=== PATIENT | female | born 1980 | race Caucasian/White ===

== ENCOUNTER → 2017-05-27 | Outpatient (CLI) | payer BC ==
--- NOTE | 2017-05-27 16:16 | US ---
EXAMINATION TYPE: US pelvic complete DATE OF EXAM: 05/27/2017 COMPARISON: NONE CLINICAL HISTORY: R10.2 Pelvic Pain. Pelvic pain x 1 week, 6, para 2, miscarriage 4, history of TECHNIQUE: Transabdominal (TA) Date of LMP: 05/06/2017 EXAM MEASUREMENTS: Uterus: 9.1 x 3.7 x 4.9 cm Endometrial Stripe: 0.8 cm Right Ovary: 3.1 x 2.2 x 2.2 cm Left Ovary: 1.8 x 1.4 x 2.0 cm 1. Uterus: anteverted, wnl 2. Endometrium: wnl 3. Right Ovary: wnl 4. Left Ovary: wnl 5. Bilateral Adnexa: wnl 6. Posterior cul-de-sac: wnl IMPRESSION: Unremarkable study.
== END ==
LOC: RADUSMAIN 15:37
PROVIDERS: ATTEND Internal Medicine
DX: R10.2 Pelvic and perineal pain (principal)
CPT/HCPCS: 76856

== ENCOUNTER → 2018-05-26 | Outpatient (CLI) | payer BC ==
--- NOTE | 2018-05-26 21:28 | MR ---
EXAMINATION TYPE: MR brain wo/w con DATE OF EXAM: 05/26/2018 COMPARISON: None HISTORY: Migraines, abnormal reflex, dyscoordination TECHNIQUE: Multiplanar, multisequence images of the brain and brainstem is performed without and with IV contras t, utilizing 5 mL intravenous Gadavist . FINDINGS: Diffusion weighted images demonstrate no evidence of a recent infarct or other diffusion ab normality. The ventricular system and cisternal spaces are normal in size and appearance. The brain volume is age appropriate. Midline structures demonstrate normal morphology. The craniocervical junction appears within normal limits. Post contrast images demonstrate a venous angioma within the left temporal lobe. The dural v enous sinuses appear patent. Changes of chronic sinusitis noted. Nasal septal deviation noted. White matter: There are approximately 3 areas of abnormal signal within the white matter. All measure less than 5 mm. No lesions perpendicular ventricular system. No enhancing lesions. No callosal lesions. IMPRESSION: 1. Minimal nonspecific white matter change could be seen with migraine headaches hypertension. Demyel inating process or remote microvascular ischemic not entirely excluded. 2. There is a venous angioma within the left temporal lobe.
== END | disposition home or self-care (01) ==
LOC: RADMRIMAIN 20:22
PROVIDERS: ATTEND Psychiatry & Neurology Neurology
DX: Q28.3 Other malformations of cerebral vessels (principal); G35 Multiple sclerosis
CPT/HCPCS: 70553; A9581

== ENCOUNTER → 2018-09-25 | Outpatient (CLI) | payer BC ==
[2018-09-25 15:14] LABS: Basophils # (A) 0.1 k/uL (0-0.2); Basophils % (A) 1 %; Eosinophils # (A) 0.1 k/uL (0-0.7); Eosinophils % (A) 1 %; HCT 39.6 % (34.0-46.0); HGB 12.6 gm/dL (11.4-16.0); Lymphocytes # (A) 1.7 k/uL (1.0-4.8); Lymphocytes % (A) 20 %; MCH 29.3 pg (25.0-35.0); MCHC 31.7 g/dL (31.0-37.0); MCV 92.6 fL (80.0-100.0); Mean Platelet Volume 6.6; Monocytes # (A) 0.4 k/uL (0-1.0); Monocytes % (A) 5 %; Neutrophils # (A) 6.2 k/uL (1.3-7.7); Neutrophils % (A) 72 %; Platelet Count 356 k/uL (150-450); RBC 4.28 m/uL (3.80-5.40); RDW 13.1 % (11.5-15.5); WBC 8.6 k/uL (3.8-10.6)
[2018-09-25 15:22] LABS: ALT 17 U/L (9-52); AST 12 U/L (14-36); Albumin 4.8 g/dL (3.5-5.0); Albumin/Globulin Ratio 1.5; Alkaline Phosphatase 48 U/L (38-126); Anion Gap 12 mmol/L; Blood Urea Nitrogen 16 mg/dL (7-17); Calcium 9.6 mg/dL (8.4-10.2); Carbon Dioxide 22 mmol/L (22-30); Chloride 108 mmol/L (98-107); Globulin 3.3 g/dL; Glucose 82 mg/dL (74-99); Magnesium 2.1 mg/dL (1.6-2.3); Potassium 3.8 mmol/L (3.5-5.1); Sodium 142 mmol/L (137-145); Total Bilirubin 0.3 mg/dL (0.2-1.3); Total Protein 8.1 g/dL (6.3-8.2)
[2018-09-25 15:39] LABS: T4, Free (Free Thyroxine) 0.75 ng/dL (0.78-2.19)
[2018-09-25 17:58] LABS: Vitamin D 25 Hydroxy 8.3 ng/mL (30.0-100.0)
== END | disposition home or self-care (01) ==
LOC: LABMAIN 14:30
PROVIDERS: ATTEND Family Medicine
DX: R06.00 Dyspnea, unspecified (principal); G93.3 Postviral and related fatigue syndromes
CPT/HCPCS: 36415; 80053; 82306; 82607; 83735; 84439; 84443; 85025; 85303; 85305; 85379

== ENCOUNTER → 2018-10-10 | Outpatient (CLI) | payer BC ==
--- NOTE | 2018-10-11 07:43 | US ---
EXAMINATION TYPE: US thyroid st tissue head/neck DATE OF EXAM: 10/10/2018 COMPARISON: NONE CLINICAL HISTORY: R22.1 Localized swelling, mass and lump, neck. GLAND SIZE: Right Lobe: 5.2 x 1.3 x 1.4 cm Overall Parenchyma: homogenous Left Lobe: 4.7 x 0.8 x 1.3 cm Overall Parenchyma: homogeneous Isthmus Thickness: 0.3 cm NODULES RIGHT: # of nodules measured on right: 0 LEFT: # of nodules measured on left: 0 ISTHMUS: # of nodules measured in the isthmus: 0 Bilateral neck scanned, no evidence of lymphadenopathy. No discrete abnormalities. IMPRESSION: 1. Normal thyroid ultrasound.
== END | disposition home or self-care (01) ==
LOC: RADUSWWP 16:48
PROVIDERS: ATTEND Family Medicine
DX: R22.1 Localized swelling, mass and lump, neck (principal)
CPT/HCPCS: 76536

== ENCOUNTER → 2019-01-12 | Outpatient (CLI) | payer BC ==
--- NOTE | 2019-01-12 14:40 | MM ---
Reason for exam: clinical finding. Baseline mammogram. History: Patient had first child at age 36. Took hormonal contraceptives for 1 year beginning at age 19. Physical Findings: Nurse did not find any significant physical abnormalities on exam. MG Diagnostic Mammo w CAD [facility] Bilateral CC and MLO view(s) were taken. The breast tissue is extremely dense which could obscure a lesion on mammography. Benign appearing diffuse bilateral calcifications. Right middle depth asymmetry, medial and lateral. Left medial asymmetry middle depth. Left upper outer quadrant middle depth masses. These results were verbally communicated with the patient and result sheet given to the patient on 01/12/19. ASSESSMENT: Incomplete: need additional imaging evaluation, BI-RAD 0 RECOMMENDATION: Ultrasound of both breasts.
--- NOTE | 2019-01-12 14:43 | USB ---
Reason for exam: clinical finding. History: Patient had first child at age 36. Took hormonal contraceptives for 1 year beginning at age 19. US Breast Limited BILAT Right complete breast ultrasound includes all four quadrants, the retroareolar region and axilla. Finding demonstrates a 9 x 6 x 13mm oval, cystic lesion at 3 o'clock, a 7 x 5 x 8mm oval, cystic lesion at 4 o'clock, a 4 x 3 x 4mm oval, mixed, hypoechoic, complicated cyst at 6 o'clock and a 18 x 9 x 13mm lobular, cystic lesion at 11 o'clock. Left complete breast ultrasound includes all four quadrants, the retroareolar region and axilla. Finding demonstrates a 8 x 3 x 7mm oval, cystic lesion at 1 o'clock, a 6 x 5 x 7mm oval, hypoechoic, complicated cyst at 2 o'clock and a 10 x 5 x 13mm lobular, cystic lesion at 3 o'clock. These results were verbally communicated with the patient and result sheet given to the patient on 01/12/19. ASSESSMENT: Benign, BI-RAD 2 RECOMMENDATION: Routine screening mammogram of both breasts in 1 year.
== END ==
LOC: RADMAMWWP 13:19
PROVIDERS: ATTEND Obstetrics & Gynecology
DX: N63.20 Unspecified lump in the left breast, unspecified quadrant (principal); N63.10 Unspecified lump in the right breast, unspecified quadrant; N64.52 Nipple discharge
CPT/HCPCS: 77066

== ENCOUNTER → 2020-04-07 | Outpatient (CLI) | payer BC ==
--- NOTE | 2020-04-09 11:08 | MM ---
Reason for exam: screening (asymptomatic). Last mammogram was performed 1 year and 3 months ago. History: Patient had first child at age 36. Took hormonal contraceptives for 1 year beginning at age 19. Physical Findings: A clinical breast exam by your physician is recommended on an annual basis and results should be correlated with mammographic findings. MG Screening Mammo w CAD Bilateral CC and MLO view(s) were taken. Prior study comparison: January 12, 2019, bilateral MG diagnostic mammo w CAD [facility]. The breast tissue is heterogeneously dense. This may lower the sensitivity of mammography. No significant changes when compared with prior studies. ASSESSMENT: Benign, BI-RAD 2 RECOMMENDATION: Routine screening mammogram of both breasts in 1 year.
== END | disposition home or self-care (01) ==
LOC: RADMAMWWP 14:31
PROVIDERS: ATTEND Obstetrics & Gynecology
DX: Z12.31 Encounter for screening mammogram for malignant neoplasm of breast (principal); Z80.3 Family history of malignant neoplasm of breast
CPT/HCPCS: 77067

== ENCOUNTER → 2020-09-09 | Outpatient (CLI) | payer BC ==
--- NOTE | 2020-09-09 19:50 | CT ---
EXAMINATION TYPE: CT abdomen pelvis w con DATE OF EXAM: 09/09/2020 HISTORY: diarrhea X 1 month, covid positive. CT DLP: 347.4mGycm Automated Exposure Control for Dose Reduction was Utilized. CONTRAST: CT scan of the abdomen and pelvis is performed without oral but with IV Contrast, patient injected wi th 100 mL of Isovue 300. COMPARISON: None. FINDINGS: LUNG BASES: No significant abnormality is appreciated. LIVER/GB: Liver size upper limits of normal. PANCREAS: No significant abnormality is seen. SPLEEN: No significant abnormality is seen. ADRENALS: No significant abnormality is seen. KIDNEYS: Symmetric cortical measuring uptake and excretion without concerning renal mass or hydroneph rosis seen bilaterally. BOWEL: Suboptimal evaluation of bowel without enteric contrast. No suspicious small or large bowel di latation. There is some mild wall thickening throughout portions of the colon thought present. No fátima e air. No significant surrounding inflammatory change. UTERUS/ADNEXA: Retroverted uterus. Small to moderate amount of free fluid in pelvic cul-de-sac axial image 66 is nonspecific. Rim hyperdense 1.7 cm left ovarian lesion axial image 64 favors corpus lutea l cyst from recent ovulation. LYMPH NODES: No greater than 1cm abdominal or pelvic lymph nodes are appreciated. OSSEOUS STRUCTURES: Underlying scoliotic curvature. OTHER: No significant additional abnormality is seen. IMPRESSION: Possible mild uncomplicated acute multifocal colitis versus product of poor distention, d ifferential includes infectious and/or inflammatory etiologies. No bowel obstruction.
== END | disposition home or self-care (01) ==
LOC: RADCTMAIN 18:41
PROVIDERS: ATTEND Nurse Practitioner Family
DX: R19.7 Diarrhea, unspecified (principal)
CPT/HCPCS: 74177; Q9967

== ENCOUNTER → 2021-03-18 | Outpatient (CLI) | payer BC ==
--- NOTE | 2021-03-18 08:37 | USB ---
EXAMINATION TYPE: US breast limited BILAT DATE OF EXAM: 03/18/2021 COMPARISON: Mammogram same date CLINICAL HISTORY: N60.09 BREAST CYST. Findings: The right retroareolar breast was scanned with ultrasound given patient's history of milky discharge upon mammogram examination. No ductal ectasia or intraductal lesion is seen. Clinical follow-up is re commended. The left breast was scanned with ultrasound at 2:00. There is a 2.0 x 1.4 x 2.0 cm simple cyst which corresponds well in size, location and morphology to the asymmetry seen on mammogram and palpable abn ormality. Incidentally noted is a simple cyst in the left retroareolar breast at 9:00 measuring up to 1.8 cm. IMPRESSION: 1. Clinical follow-up is recommended for right milky nipple discharge for which there is no mammograp hic or sonographic correlate. 2. Simple cyst corresponds to the palpable abnormality in the left upper outer breast. Clinical follo w-up is recommended. BI-RADS 2, benign. Recommendation: Screening mammogram beginning at age 40.
--- NOTE | 2021-03-18 08:45 | MM ---
Reason for exam: clinical finding. Last mammogram was performed 11 months ago. History: Patient had first child at age 36. Took hormonal contraceptives for 1 year beginning at age 19. Physical Findings: Nurse Summary: 1cm nodule in the left breast at 1 o'clock (nurse yany). MG 3D Diag Mammo W/Cad [facility] Bilateral CC, MLO, and XCCL view(s) were taken. Prior study comparison: April 07, 2020, bilateral MG screening mammo w CAD. January 12, 2019, bilateral MG diagnostic mammo w CAD [facility]. The breast tissue is extremely dense which could obscure a lesion on mammography. There is a mass in the left upper outer posterior breast at site of palpable and ultrasound is recommended. Bilateral scattered asymmetries and calcifications. Right retroareolar ultrasound recommended for nipple discharge during exam. These results were verbally communicated with the patient and result sheet given to the patient on 03/18/21. ASSESSMENT: Incomplete: need additional imaging evaluation, BI-RAD 0 RECOMMENDATION: Ultrasound of both breasts.
== END | disposition home or self-care (01) ==
LOC: RADMAMWWP 06:55
PROVIDERS: ATTEND Obstetrics & Gynecology
DX: N60.02 Solitary cyst of left breast (principal); R92.1 Mammographic calcification found on diagnostic imaging of breast; N64.89 Other specified disorders of breast; N64.52 Nipple discharge
CPT/HCPCS: 77062; 77066

== ENCOUNTER → 2021-04-01 | Outpatient (CLI) | payer BC ==
[2021-04-01 12:11] LABS: Basophils # (A) 0.04 X 10*3/uL (0.00-0.10); Basophils % (A) 0.9 %; Eosinophils # (A) 0.13 X 10*3/uL (0.04-0.35); Eosinophils % (A) 2.9 %; HCT 37.6 % (37.2-46.3); HGB 11.4 g/dL (12.0-15.0); Lymphocytes # (A) 1.26 X 10*3/uL (0.90-5.00); Lymphocytes % (A) 28.1 %; MCH 29.4 pg (27.0-32.0); MCHC 30.3 g/dL (32.0-37.0); MCV 96.9 fL (80.0-97.0); Monocytes # (A) 0.41 X 10*3/uL (0.20-1.00); Monocytes % (A) 9.2 %; Neutrophils # (A) 2.62 X 10*3/uL (1.80-7.70); Neutrophils % (A) 58.5 %; Platelet Count 234 X 10*3/uL (140-440); RBC 3.88 X 10*6/uL (4.10-5.20); RDW 13.1 % (11.5-14.5); WBC 4.48 X 10*3/uL (4.50-10.00)
[2021-04-01 14:24] LABS: % Iron Saturation 21.43 (12.00-45.00)
[2021-04-01 16:09] LABS: Folate, Serum 20.1 ng/mL
[2021-04-01 17:51] LABS: Prolactin 7.4 ng/mL (2.8-29.2)
== END | disposition home or self-care (01) ==
LOC: LABWHC1 07:59
PROVIDERS: ATTEND Nurse Practitioner Adult Health
DX: N64.52 Nipple discharge (principal); D64.9 Anemia, unspecified
CPT/HCPCS: 36415; 82607; 82746; 83540; 83550; 84146; 85025

== ENCOUNTER → 2021-04-18 | Outpatient (CLI) | payer BC ==
--- NOTE | 2021-04-18 20:05 | MR ---
EXAMINATION TYPE: MR brain wo/w con DATE OF EXAM: 04/18/2021 COMPARISON: 05/26/2018 HISTORY: Migraines, to be compared to prior 2018 MRI. CONTRAST: Standard multiplanar, multisequence MRI departmental protocol utilizing 6.5 mL intravenous Gadavist g adolinium contrast. Diffusion images show no evidence of an acute infarct. The ventricles and sulci appear normal. There is no mass effect nor midline shift. There is no sign of intracranial hemorrhage. Garsia-white matter s tructures have fairly normal signal pattern. There is very subtle mild increased signal in the white matter on the T2 and FLAIR images similar to old exam and of uncertain and doubtful significance. No focal white matter lesion. The brainstem is intact. Cerebellum appears normal. Corpus callosum is in tact. There is no evidence of orbital mass. There is normal enhancement of the venous sinuses. I see no pathologic enhancement. IMPRESSION: Negative exam. No adverse change compared to old exam.
== END | disposition home or self-care (01) ==
LOC: RADMRIMAIN 07:34
PROVIDERS: ATTEND Family Medicine
DX: G43.909 Migraine, unspecified, not intractable, without status migrainosus (principal)
CPT/HCPCS: 70553; A9585

== ENCOUNTER → 2022-08-20 | Outpatient (CLI) | payer BC ==
--- NOTE | 2022-08-23 11:55 | MM ---
Reason for Exam: Screening (asymptomatic). Last mammogram was performed 1 year(s) and 5 month(s) ago. Patient History: Menarche at age 16. First Full-Term at age 36. Late child-bearing (after 30). Premenopausal. Hormonal Contraceptives for 1 year from age 19 until age 20. Paternal grandmother had breast cancer, age 70. Last menstrual period: 08/11/2022 Risk Values: Alise 5 year model risk: 0.7%. NCI Lifetime model risk: 12.5%. Prior Study Comparison: 01/12/2019 Bilateral Diagnostic Mammogram, [facility]. 04/07/2020 Bilateral Screening Mammogram, [facility]. 03/18/2021 Bilateral Diagnostic Mammogram, [facility]. Tissue Density: The breast tissue is extremely dense which could obscure a lesion on mammography. Findings: Analyzed By CAD. Multiple tiny benign round calcifications bilaterally are redemonstrated. Large partially obscured masses in the left breast are felt present and increased in size from prior study. For references a 3.6 cm lesion in the left breast post outer aspect cc slice 20 and subareolar region left breast CC slice 32 measuring 3.8 cm. Obscured mass is right breast stable or smaller in size. Overall Assessment: Incomplete: need additional imaging evaluation, BI-RAD 0 Management: Diagnostic Breast Ultrasound of the left breast. Complete left breast ultrasound. Electronically signed and approved by: David Salinas M.D.
== END | disposition home or self-care (01) ==
LOC: RADMAMWWP 07:08
PROVIDERS: ATTEND Obstetrics & Gynecology
DX: Z12.31 Encounter for screening mammogram for malignant neoplasm of breast (principal); Z80.3 Family history of malignant neoplasm of breast
CPT/HCPCS: 77063; 77067

== ENCOUNTER → 2022-08-26 | Outpatient (CLI) | payer BC ==
--- NOTE | 2022-08-26 07:34 | USB ---
Reason for Exam: Additional evaluation requested from abnormal screening. Patient History: Menarche at age 16. First Full-Term at age 36. Late child-bearing (after 30). Premenopausal. Hormonal Contraceptives for 1 year from age 19 until age 20. Paternal grandmother had breast cancer, age 70. Risk Values: Alise 5 year model risk: 0.7%. NCI Lifetime model risk: 12.5%. Technique: Method: Whole Breast Handheld. Prior Study Comparison: 04/07/2020 Bilateral Screening Mammogram, [facility]. 03/18/2021 Bilateral Diagnostic Mammogram, [facility]. 08/20/2022 Bilateral MG 3D screening mammo w/cad, [facility]. Findings: The whole breast of the left breast, the axilla of the left breast and the retroareolar of the left breast were scanned. A complete US of all four quadrants of the breast , axilla, and retro-areolar region were reviewed. Dense tissues are present throughout. Numerous benign cysts are present, largest at the 2:00 position, 8 cm from the nipple measuring 4.0 cm corresponding well to the new mammographic finding. Second largest at the 9:00 position, 4 cm from the nipple measuring up to 3.5 cm. Numerous additional smaller cysts are present throughout. No axillary lymphadenopathy. Overall Assessment: Benign, BI-RAD 2 Management: Screening Mammogram of both breasts in 1 year. 1. Patient should continue monthly self breast exams. If any of the cysts become symptomatic, patient can be referred for ultrasound-guided aspiration. 2. A clinical breast exam by your physician is recommended on an annual basis. 3. This exam should not preclude additional follow-up of suspicious palpable abnormalities. Electronically signed and approved by: John Paul Cai M.D. Radiologist
== END | disposition home or self-care (01) ==
LOC: RADUSWWP 06:51
PROVIDERS: ATTEND Obstetrics & Gynecology
DX: R92.8 Other abnormal and inconclusive findings on diagnostic imaging of breast (principal); Z80.3 Family history of malignant neoplasm of breast

== ENCOUNTER → 2023-05-10 | Outpatient (CLI) | payer BC ==
--- NOTE | 2023-05-10 09:30 | US ---
EXAMINATION TYPE: US abdomen complete DATE OF EXAM: 05/10/2023 COMPARISON: NONE CLINICAL INDICATION: Female, 42 years old with history of R10.10; lower abdominal pain since November, a macie reflux, father recently of cancer of the bile ducts, patient also lost two friends to cancer and has high anxiety about her health TECHNIQUE: Multiple sonographic images of the abdomen are obtained. 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 Evidence for sonographic Resendiz's sign: No CBD: wnl Spleen: wnl Right Kidney: wnl Left Kidney: wnl Upper IVC: wnl Abd Aorta: wnl Imaging of the left kidney and spleen is slightly limited due to small rib spaces and shadowing The liver is homogenous. The intrahepatic portion of the IVC and proximal abdominal aorta are within normal limits. There is a 2 mm hyperechoic polyp versus nonmobile gallstone. No wall thickening or pericholecystic fluid. Common bile duct is unremarkable. The visualized portions of the pancreas ar e homogenous. The spleen is unremarkable. Kidneys are symmetric and free of hydronephrosis. No calvin al lesions are seen. IMPRESSION: 1. No acute process. 2. There is a 2 mm gallbladder polyp versus nonmobile gallstone. Consider follow-up examination in 6 months to assess for stability as clinically indicated.
== END | disposition home or self-care (01) ==
LOC: RADUSWWP 07:37
PROVIDERS: ATTEND Internal Medicine Gastroenterology
DX: K21.9 Gastro-esophageal reflux disease without esophagitis (principal)
CPT/HCPCS: 76700

== ENCOUNTER 2023-07-12 09:40 | Day surgery (SDC) | payer BC ==
[2023-07-08 10:24] VITALS: BMI 20.7
[~2023-07-12 09:40] MED LIST: LACTATED RINGERS 1,000 ML IV SCH; LIDOCAINE 1% (10MG/ML) FOR IV START INTRADERMA PRN
[2023-07-12 10:58] VITALS: TEMP 98.8
[2023-07-12] MEDS ORDERED: LIDOCAINE 2% (PF) 20 MG/ML 5 ML VIAL ONE (11:09)
[2023-07-12] MEDS ORDERED: PROPOFOL 10 MG/ML 20 ML VIAL IV ONE (11:09)
--- NOTE | 2023-07-12 11:21 | P.PCN ---
Date of Procedure: 07/12/23 Procedure(s) Performed: BRIEF HISTORY: Patient is a 43-year-old, pleasant, white female scheduled for an upper endoscopy as a part of evaluation of GERD for the last 1 year duration. She is presently on Pepcid 20 mg daily. PROCEDURE PERFORMED: Esophagogastroduodenoscopy with biopsy . PREOPERATIVE DIAGNOSIS: history of GERD. IV sedation per anesthesia. PROCEDURE: After informed consent was obtained, the patient was brought into the endoscopy unit. IV sedation was administered by Anesthesia under continuous monitoring. Initially the Olympus GIF-140 video endoscope was inserted into the mouth. Esophagus intubated without any difficulty. It was gradually advanced into the stomach and duodenum and carefully examined. The bulb and the second part of the duodenum appeared normal. The scope at this time was withdrawn to the stomach, adequately insufflated with air, and upon careful examination, mucosa of the antrum, and mild gastritis and biopsies were done from this area. Mucosa of the body, cardia and the fundus appeared normal. The scope was then withdrawn into the esophagus.small hiatal hernia seen. The GE junction was located at 39 cm from the incisors. there was patchy areas of erythema the GE junction consistent with LA grade a reflux esophagitis. The rest of the esophagus appeared normal. There were no erosions or ulcerations seen and the patient tolerated the procedure well. IMPRESSION: 1. Small hiatal hernia and LA grade A reflux esophagitis. 2. Mild antral gastritis . RECOMMENDATIONS: The findings of this examination were discussed with the patient as well as a family. She was advised to follow with the biopsy results. Continue with Pepcid 20 mg daily and follow antireflux measures..
[2023-07-12 11:57] VITALS: BP 105/68; PULSE 76; RESP 16
== END 2023-07-12 12:31 | disposition home or self-care (01) ==
LOC: ORWHC2ENDO 09:40
PROVIDERS: ATTEND Internal Medicine Gastroenterology
DX: K29.50 Unspecified chronic gastritis without bleeding (principal); K44.9 Diaphragmatic hernia without obstruction or gangrene; K21.00 Gastro-esophageal reflux disease with esophagitis, without bleeding; G43.909 Migraine, unspecified, not intractable, without status migrainosus; F41.8 Other specified anxiety disorders; F17.200 Nicotine dependence, unspecified, uncomplicated; Z79.899 Other long term (current) drug therapy; Z79.818 Long term (current) use of other agents affecting estrogen receptors and estrogen levels
CPT/HCPCS: 81025; 88305; 43239; J2704; J2001

== ENCOUNTER → 2023-08-30 | Outpatient (CLI) | payer BC ==
--- NOTE | 2023-08-30 10:49 | MM ---
Reason for Exam: Clinical finding. Last mammogram was performed 1 year(s) and 1 month(s) ago. Patient History: Menarche at age 16. First Full-Term at age 36. Late child-bearing (after 30). Premenopausal. Hormonal Contraceptives for 1 year from age 19 until age 20. Paternal grandmother had breast cancer, age 70. Risk Values: Alise 5 year model risk: 0.8%. NCI Lifetime model risk: 12.4%. Tissue Density: The breast tissue is extremely dense which could obscure a lesion on mammography. Findings: Analyzed By CAD. Diffuse and regional punctate calcifications are redemonstrated. There is chronic bilateral nodularity. Particularly fluctuating superiorly in the right breast. Palpable marker placed along the upper outer quadrant left breast. There is an underlying 3.7 cm mass which is slightly larger from prior. A cyst is suspected. Further ultrasound evaluation recommended. Overall Assessment: Incomplete: need additional imaging evaluation, BI-RAD 0 Management: Diagnostic Breast Ultrasound of the left breast. Electronically signed and approved by: John Paul Cai M.D. Radiologist
--- NOTE | 2023-08-30 11:39 | USB ---
Reason for Exam: Clinical finding. Patient History: Menarche at age 16. First Full-Term at age 36. Late child-bearing (after 30). Premenopausal. Hormonal Contraceptives for 1 year from age 19 until age 20. Paternal grandmother had breast cancer, age 70. Risk Values: Alise 5 year model risk: 0.8%. NCI Lifetime model risk: 12.4%. Technique: Method: Whole Breast Handheld. Prior Study Comparison: 04/07/2020 Bilateral Screening Mammogram, [facility]. 03/18/2021 Bilateral Diagnostic Mammogram, [facility]. 08/20/2022 Bilateral MG 3D screening mammo w/cad, [facility]. 08/26/2022 Left US breast LT, [facility]. Findings: The whole breast of the left breast, the axilla of the left breast and the retroareolar of the left breast were scanned. A complete US of all four quadrants of the breast common axilla, and retro-areolar region were reviewed. Multiple benign cysts are present, largest at the 3:00 palpable site measuring 3.7 cm and containing some layering debris. Second largest at the 9:00 position measuring up to 4.4 cm. Smaller cysts such as at 4:00 measure 1.0 cm. Dense tissue is present throughout. No suspicious solid mass. Mild duct ectasia. No axillary lymphadenopathy. Overall Assessment: Benign, BI-RAD 2 Management: Screening Mammogram of both breasts in 1 year. Ultrasound-guided cyst aspiration can be performed if the patient's palpable cyst becomes symptomatic. A clinical breast exam by your physician is recommended on an annual basis and results should be correlated with mammographic findings. This exam should not preclude additional follow-up of suspicious palpable abnormalities. Results were given to the patient verbally at the time of exam. Electronically signed and approved by: John Paul Cai M.D. Radiologist
== END | disposition home or self-care (01) ==
LOC: RADMAMWWP 10:14
PROVIDERS: ATTEND Family Medicine
DX: N63.20 Unspecified lump in the left breast, unspecified quadrant (principal); Z80.3 Family history of malignant neoplasm of breast; R92.343 Mammographic extreme density, bilateral breasts
CPT/HCPCS: 77062; 77066

== ENCOUNTER → 2024-09-20 | Outpatient (CLI) | payer BC ==
--- NOTE | 2024-09-21 17:30 | MM ---
Reason for Exam: Screening (asymptomatic). Last screening mammogram was performed 12 month(s) ago. Patient History: Menarche at age 16. First Full-Term at age 36. Late child-bearing (after 30). Premenopausal. Hormonal Contraceptives for 1 year from age 19 until age 20. Paternal grandmother had breast cancer, age 70. Last menstrual period: 09/05/2024 Risk Values: Alise 5 year model risk: 0.8%. NCI Lifetime model risk: 12.2%. Prior Study Comparison: 03/18/2021 Bilateral Diagnostic Mammogram, [facility]. 08/20/2022 Bilateral MG 3D screening mammo w/cad, [facility]. 08/30/2023 Bilateral MG 3D diag mammo w/cad [facility], [facility]. Tissue Density: The breasts are extremely dense, which lowers the sensitivity of mammography. Findings: Analyzed By CAD. Fluctuating bilateral areas of nodularity for which further ultrasound evaluation is recommended. Diffuse punctate calcifications redemonstrated both sides. Overall Assessment: Incomplete: need additional imaging evaluation, BI-RAD 0 Management: Diagnostic Breast Ultrasound of both breasts. [facility] will attempt to contact patient to return for ultrasound. [facility], , 09/21/2024 5:27 PM. Electronically signed and approved by: John Paul Cai M.D. Radiologist
== END | disposition home or self-care (01) ==
LOC: RADMAMWWP 07:35
PROVIDERS: ATTEND Obstetrics & Gynecology
DX: Z12.31 Encounter for screening mammogram for malignant neoplasm of breast (principal); R92.343 Mammographic extreme density, bilateral breasts
CPT/HCPCS: 77063; 77067

== ENCOUNTER → 2024-09-28 | Outpatient (CLI) | payer BC ==
--- NOTE | 2024-09-28 10:03 | USB ---
Reason for Exam: Additional evaluation requested from abnormal screening. Patient History: Menarche at age 16. First Full-Term at age 36. Late child-bearing (after 30). Premenopausal. Hormonal Contraceptives for 1 year from age 19 until age 20. Paternal grandmother had breast cancer, age 70. Risk Values: Alise 5 year model risk: 0.8%. NCI Lifetime model risk: 12.2%. Technique: Method: Whole Breast Handheld. Doppler: Color. Patient Position: Lateral Decubitus. Prior Study Comparison: 08/20/2022 Bilateral MG 3D screening mammo w/cad, [facility]. 08/30/2023 Bilateral MG 3D diag mammo w/cad [facility], [facility]. 09/20/2024 Bilateral MG 3D screening mammo w/cad, [facility]. Findings: The whole breast of both breasts, the axilla of both breasts and the retroareolar of both breasts were scanned. There are multiple bilateral simple appearing cysts. There are some adjacent cyst present. No suspicious solid lesions or complex cystic areas evident. Findings appear stable comparison 08/30/2023.. She has no complaints. Cysts are not bothersome to her at this time. Overall Assessment: Benign, BI-RAD 2 Management: Screening Mammogram of both breasts in 1 year. A clinical breast exam by your physician is recommended on an annual basis and results should be correlated with mammographic findings. This exam should not preclude additional follow-up of suspicious palpable abnormalities. Results were given to the patient verbally at the time of exam. [facility], , 09/28/2024 9:29 AM. Electronically signed and approved by: Yemi Mooney D.O. Radiologis
== END | disposition home or self-care (01) ==
LOC: RADUSWWP 08:49
PROVIDERS: ATTEND Obstetrics & Gynecology
DX: R92.8 Other abnormal and inconclusive findings on diagnostic imaging of breast (principal); Z80.3 Family history of malignant neoplasm of breast